=== PATIENT | male | born 1935 | race Caucasian/White ===

== ENCOUNTER 2023-06-11 08:42 | Emergency (ER) | payer OTHER ==
[~2023-06-11] VITALS: Ht 170.2 cm; Wt 77.2 kg
[~2023-06-11 08:42] MED LIST: AML5T PO; ASPI-543 PO; ATOR10TA PO; CLOP75TA28 PO; FOLI-119 PO; LEVO112T2 PO; METO25TA36 PO
[2023-06-11] MEDS ORDERED: SODIUM CHLORIDE 0.9% 500 ML IVB ONE (09:15)
[2023-06-11 09:18] VITALS: PULSE 84; RESP 18; O2SAT 93
[2023-06-11 09:20] LABS: Basophils # (auto) 0 10 ^3/uL (0-0.2); Eosinophils # (auto) 0 10 ^3/uL (0-0.8); Eosinophils % (auto) 0.4 % (0.0-7.0); Lymphocytes # (auto) 0.6 10 ^3/uL (0.4-5.4); Mean Corpuscular Hgb Conc. 33.8 g/dL (32.0-36.0); Monocytes # (auto) 0.6 10 ^3/uL (0-1.3); Neutrophils % (auto) 86.2 % (37.0-80.0); Red Blood Cells 3.99 10^6/uL (4.5-5.90)
[2023-06-11 09:22] LABS: Basophils % (auto) 0.1 % (0.0-2.0); Hematocrit 40.7 % (41.0-53.0); Hemoglobin 13.7 g/dL (13.5-17.5); Lymphocytes % (auto) 6.8 % (10.0-50.0); Mean Corpuscular Hemoglobin 34.4 pg (28.0-32.0); Mean Corpuscular Volume 101.8 fL (80.0-100.0); Monocytes % (auto) 6.5 % (0.0-12.0); Neutrophils # (auto) 7.9 10 ^3/uL (1.6-8.6); White Blood Cell 9.1 10^3/uL (4.4-10.8)
[2023-06-11 09:32] LABS: INR 1.16 (0.9-1.15); Partial Thromboplastin Time 30.2 SEC (24.5-34.5); Prothrombin Time 12.1 sec (9.3-11.8)
[2023-06-11 09:38] LABS: Calcium 8.7 mg/dL (8.5-10.1); Potassium 4.1 mmol/L (3.5-5.1)
[2023-06-11 09:43] LABS: Albumin 3.6 g/dL (3.4-5.0); Magnesium 2.7 mg/dL (1.6-2.6); Total Protein 7.4 g/dL (6.4-8.2)
[2023-06-11 12:41] LABS: COVID19 ANTIGEN SOFIA FIA NEGATIVE (NEGATIVE)
[2023-06-11 13:10] LABS: Urine Bacteria FEW /hpf (None Seen); Urine Blood 1+ /uL (Negative); Urine Clarity Clear (Clear); Urine Color Yellow (Yellow); Urine Mucus FEW (None Seen); Urine Protein, UAD 2+ (Negative); Urine Specific Gravity 1.023 (1.001-1.035); Urine Urobilinogen Normal (Negative); Urine WBC 2 /hpf (0 - 3); Urine pH 5.5 (5.0-8.0)
[2023-06-11 15:03] VITALS: BP 114/63; PULSE 80; RESP 20; O2SAT 97
[2023-06-11] MEDS ORDERED: ATORVASTATIN 20 MG TAB PO SCH (18:00)
[2023-06-12] MEDS ORDERED: LEVOTHYROXINE SODIUM 112 MCG TAB PO SCH (10:00)
[2023-06-12] MEDS ORDERED: ASPirin-EC 81 mg tab PO SCH (10:00)
[2023-06-12] MEDS ORDERED: CLOPIDOGREL BISULFATE 75 MG TAB PO SCH (10:00)
[2023-06-12] MEDS ORDERED: METOPROLOL SUCCINATE XL 50 MG TAB PO SCH (10:00)
[2023-06-12] MEDS ORDERED: amLODIPine BESYLATE 5 MG TAB PO SCH (10:00)
[2023-06-12] MEDS ORDERED: FOLIC ACID 1 MG TAB PO SCH (10:00)
[2023-06-12] MEDS ORDERED: ONDA-155 PO (18:39)
== END 2023-06-11 15:00 | disposition home or self-care (01) ==
LOC: ER 08:42
DX: R53.1 Weakness (principal); E78.5 Hyperlipidemia, unspecified; I10 Essential (primary) hypertension; R51.9 Headache, unspecified; Z20.822 Contact with and (suspected) exposure to COVID-19; Z88.6 Allergy status to analgesic agent; Z79.01 Long term (current) use of anticoagulants
CPT/HCPCS: 36415; 70450; 71045; 80053; 81001; 82962; 83605; 83735; 83880; 84484; 85025; 85610; 85730; 87040; 87426; 93005; 96360; 96361; 99284; J7040

== ENCOUNTER 2023-06-12 13:24 | Inpatient (IN) | payer OTHER ==
[~2023-06-12] VITALS: Ht 170.2 cm; Wt 86.0 kg
[2023-06-12] MEDS: SODIUM CHLORIDE 0.9% 1,000 ML IV SCH (14:15)
[2023-06-12] MEDS ORDERED: MORPHINE SULFATE INJ 2 MG/ml SYRG IV PRN (14:15)
[2023-06-12] MEDS ORDERED: NITROGLYCERIN 0.4 MG SL TAB SL PRN (14:15)
[2023-06-12 14:36] LABS: Basophils # (auto) 0 10 ^3/uL (0-0.2); Eosinophils # (auto) 0 10 ^3/uL (0-0.8); Eosinophils % (auto) 0.3 % (0.0-7.0); Mean Corpuscular Hemoglobin 34.3 pg (28.0-32.0); Neutrophils # (auto) 8.5 10 ^3/uL (1.6-8.6)
[2023-06-12 14:38] LABS: Basophils % (auto) 0.2 % (0.0-2.0); Hematocrit 40.7 % (41.0-53.0); Hemoglobin 13.5 g/dL (13.5-17.5); Lymphocytes # (auto) 0.9 10 ^3/uL (0.4-5.4); Lymphocytes % (auto) 8.8 % (10.0-50.0); Mean Corpuscular Hgb Conc. 33.3 g/dL (32.0-36.0); Monocytes # (auto) 0.6 10 ^3/uL (0-1.3); Monocytes % (auto) 6.4 % (0.0-12.0); Neutrophils % (auto) 84.3 % (37.0-80.0); Red Blood Cells 3.95 10^6/uL (4.5-5.90); Red Cell Distribution Width 14.8 % (11.8-14.3); White Blood Cell 10.1 10^3/uL (4.4-10.8)
[2023-06-12 15:09] LABS: Albumin 3.4 g/dL (3.4-5.0); Calcium 8.8 mg/dL (8.5-10.1); Potassium 4.4 mmol/L (3.5-5.1)
[2023-06-12 15:13] LABS: BUN/Creatinine Ratio 13.4 (10.0-20.0); Total Protein 7.6 g/dL (6.4-8.2)
[2023-06-12 15:42] LABS: Urine Bacteria NONE SEEN /hpf (None Seen); Urine Blood 3+ /uL (Negative); Urine Clarity Clear (Clear); Urine Color Yellow (Yellow); Urine Protein, UAD 2+ (Negative); Urine Specific Gravity 1.022 (1.001-1.035); Urine Urobilinogen Normal (Negative); Urine WBC 1 /hpf (0 - 3); Urine pH 5.5 (5.0-8.0)
[2023-06-12 18:13] VITALS: PULSE 67; RESP 16; O2SAT 92
[2023-06-12] MEDS ORDERED: ONDA-155 PO (18:39)
[2023-06-12 20:00] VITALS: BP 128/75; PULSE 94; RESP 18; TEMP 99.5; O2SAT 97
[2023-06-12 22:00] VITALS: BP 128/75; PULSE 94; RESP 18; TEMP 99.5; O2SAT 94
[2023-06-13] VITALS (7 sets, daily range): BP systolic 127–132; BP diastolic 67–79; PULSE 85–94; RESP 18–22; TEMP 97.7–99.5; O2SAT 89–97
[2023-06-13] MEDS: SODIUM CHLORIDE 0.9% 1,000 ML IV SCH ×2 (03:35→16:55)
[2023-06-13] MEDS: LEVOTHYROXINE SODIUM 112 MCG TAB PO SCH (06:26)
[2023-06-13 06:37] LABS: COVID19 ANTIGEN SOFIA FIA NEGATIVE (NEGATIVE)
[2023-06-13 07:33] LABS: Potassium 4.9 mmol/L (3.5-5.1)
[2023-06-13 07:43] LABS: Albumin 3.1 g/dL (3.4-5.0); BUN/Creatinine Ratio 15.6 (10.0-20.0); Bilirubin, Total 0.8 mg/dL (0.2-1.0); Calcium 8.1 mg/dL (8.5-10.1)
[2023-06-13] MEDS: METOPROLOL SUCCINATE XL 50 MG TAB PO SCH (09:25)
[2023-06-13] MEDS: ASPirin 81 mg TAB PO SCH (09:25)
[2023-06-13] MEDS: CLOPIDOGREL BISULFATE 75 MG TAB PO SCH (09:25)
[2023-06-13] MEDS: ENOXAPARIN SOD 30 MG/0.3 ML SYRINGE SC SCH (09:26)
[2023-06-14] VITALS (7 sets, daily range): BP systolic 117–135; BP diastolic 66–79; PULSE 78–83; RESP 17–20; TEMP 36.8; O2SAT 90–93
[2023-06-14] MEDS: ONDANSETRON HCL 4 MG/2 ML VIAL IV PRN ×2 (03:24→22:35)
[2023-06-14] MEDS: SODIUM CHLORIDE 0.9% 1,000 ML IV SCH (06:07)
[2023-06-14] MEDS: LEVOTHYROXINE SODIUM 112 MCG TAB PO SCH (06:07)
[2023-06-14] MEDS: ENOXAPARIN SOD 30 MG/0.3 ML SYRINGE SC SCH (10:33)
[2023-06-14] MEDS: CLOPIDOGREL BISULFATE 75 MG TAB PO SCH (10:33)
[2023-06-14] MEDS: ASPirin 81 mg TAB PO SCH (10:33)
[2023-06-14] MEDS: METOPROLOL SUCCINATE XL 50 MG TAB PO SCH (10:34)
[2023-06-14 20:17] LABS: COVID19 ANTIGEN SOFIA FIA NEGATIVE (NEGATIVE)
[2023-06-15] VITALS (13 sets, daily range): BP systolic 116–134; BP diastolic 72–80; PULSE 72–80; RESP 16–22; TEMP 36.8; O2SAT 90–98
[2023-06-15] MEDS: ACETAMINOPHEN 500 MG TAB PO PRN (02:02)
[2023-06-15] MEDS ORDERED: ALBUTEROL SULF 2.5 MG/0.5ML(0.5%) NEB SOLN ONE (02:25)
[2023-06-15] MEDS: LEVOTHYROXINE SODIUM 112 MCG TAB PO SCH (07:00)
[2023-06-15] MEDS: ASPirin 81 mg TAB PO SCH (10:03)
[2023-06-15] MEDS: SODIUM CHLORIDE 0.9% 1,000 ML IV SCH ×2 (10:03→13:47)
[2023-06-15] MEDS: CLOPIDOGREL BISULFATE 75 MG TAB PO SCH (10:03)
[2023-06-15] MEDS: ENOXAPARIN SOD 30 MG/0.3 ML SYRINGE SC SCH (10:04)
[2023-06-15] MEDS: METOPROLOL SUCCINATE XL 50 MG TAB PO SCH (10:04)
[2023-06-15] MEDS: ALBUTEROL SULF 2.5 MG/0.5ML(0.5%) NEB SOLN NEB PRN ×2 (10:17→22:33)
[2023-06-15] MEDS: ONDANSETRON HCL 4 MG/2 ML VIAL IV PRN ×2 (13:47→20:57)
[2023-06-16] VITALS (12 sets, daily range): BP systolic 136–153; BP diastolic 79–88; PULSE 73–92; RESP 16–25; TEMP 97.5–98.2; O2SAT 90–97
[2023-06-16] MEDS: ONDANSETRON HCL 4 MG/2 ML VIAL IV PRN (03:23)
[2023-06-16] MEDS: ALBUTEROL SULF 2.5 MG/0.5ML(0.5%) NEB SOLN NEB PRN ×2 (03:26→18:57)
[2023-06-16] MEDS: LEVOTHYROXINE SODIUM 112 MCG TAB PO SCH (06:45)
[2023-06-16] MEDS: ASPirin 81 mg TAB PO SCH (10:05)
[2023-06-16] MEDS: CLOPIDOGREL BISULFATE 75 MG TAB PO SCH (10:05)
[2023-06-16] MEDS: METOPROLOL SUCCINATE XL 50 MG TAB PO SCH (10:05)
[2023-06-16] MEDS: ENOXAPARIN SOD 30 MG/0.3 ML SYRINGE SC SCH (10:07)
[2023-06-16] MEDS: SODIUM CHLORIDE 0.9% 1,000 ML IV SCH (11:41)
[2023-06-16 12:54] LABS: Hematocrit 32.5 % (41.0-53.0); Hemoglobin 11.1 g/dL (13.5-17.5); Mean Corpuscular Hemoglobin 34.6 pg (28.0-32.0); Mean Corpuscular Volume 101.7 fL (80.0-100.0); Red Cell Distribution Width 15.3 % (11.8-14.3); White Blood Cell 9.8 10^3/uL (4.4-10.8)
[2023-06-16 12:58] LABS: Band Neutrophils % (manual) 0; Basophils % (manual) 0 (0.0-2.0); Blast Cells 0; Metamyelocytes % 0; Myelocytes % 0; Promyelocytes % 0; Reactive Lymphocytes 0
[2023-06-16 13:31] LABS: Albumin 2.4 g/dL (3.4-5.0); BUN/Creatinine Ratio 15.6 (10.0-20.0); Calcium 7.7 mg/dL (8.5-10.1); Potassium 4.3 mmol/L (3.5-5.1)
[2023-06-16 13:34] LABS: Bilirubin, Total 0.9 mg/dL (0.2-1.0); Total Protein 5.4 g/dL (6.4-8.2)
[2023-06-16 13:46] LABS: Free T4 (Free Thyroxine) 0.35 ng/dL (0.89-1.76)
[2023-06-16 13:47] LABS: Folate (Folic Acid) 18.92 ng/mL (5.38-24)
[2023-06-16 14:04] LABS: Eosinophils % (manual) 2 (0-7); Lymphocytes % (manual) 13 (10.0-50.0); Monocytes % (manual) 5 (0-12); Platelet Estimate Adequate
[2023-06-16] MEDS ORDERED: IOHEXOL 350 MG/ML 100ML IJ ONE (14:39)
[2023-06-16 14:48] LABS: Hepatitis B Surface Antibody Negative (Negative)
[2023-06-16 15:27] LABS: Hepatitis A Total Antibody Negative (Negative)
[2023-06-16 18:12] LABS: Hepatitis B Core Total AB Negative (Negative); Hepatitis B Surface Antigen Negative (Negative); Hepatitis C Antibody Negative (Negative)
[2023-06-16] MEDS: SENNA 8.6 MG TAB PO SCH (22:18)
[2023-06-16] MEDS: PANTOPRAZOLE 40 MG TAB PO SCH (22:18)
[2023-06-17] VITALS (19 sets, daily range): BP systolic 128–153; BP diastolic 76–83; PULSE 69–89; RESP 19–26; TEMP 98.6–99; O2SAT 88–95
[2023-06-17] MEDS: ALBUTEROL SULF 2.5 MG/0.5ML(0.5%) NEB SOLN NEB PRN (06:59)
[2023-06-17] MEDS: LEVOTHYROXINE SODIUM 112 MCG TAB PO SCH (07:20)
[2023-06-17] MEDS: CLOPIDOGREL BISULFATE 75 MG TAB PO SCH (09:44)
[2023-06-17] MEDS: METOPROLOL SUCCINATE XL 50 MG TAB PO SCH (09:45)
[2023-06-17] MEDS: PANTOPRAZOLE 40 MG TAB PO SCH ×2 (09:46→22:13)
[2023-06-17] MEDS: ASPirin 81 mg TAB PO SCH (09:46)
[2023-06-17] MEDS: ENOXAPARIN SOD 40 MG/0.4 ML SYRINGE SC SCH (09:46)
[2023-06-17] MEDS ORDERED: cefTRIAXone 1GM/50ML D5W 50 ML IV ONE (11:00)
[2023-06-17] MEDS ORDERED: FUROSEMIDE 20 MG/2 ML VIAL IV ONE (12:00)
[2023-06-17] MEDS ORDERED: LEVOTHYROXINE SODIUM 100 MCG/5 ML INJ IV ONE (12:15)
[2023-06-17] MEDS: IPRATROPIUM BROM 0.5 MG/2.5ML INH SOL NEB SCH ×3 (14:52→22:01)
[2023-06-17] MEDS: ALBUTEROL SULF 2.5 MG/0.5ML(0.5%) NEB SOLN NEB SCH ×3 (14:52→22:01)
[2023-06-17 15:55] LABS: Albumin 2.4 g/dL (3.4-5.0); Bilirubin, Direct 0.4 mg/dL (0-0.2)
[2023-06-17] MEDS: SENNA 8.6 MG TAB PO SCH (22:13)
[2023-06-17] MEDS: predniSONE 20 MG TAB PO SCH (22:13)
[2023-06-18] VITALS (17 sets, daily range): BP systolic 126–152; BP diastolic 76–88; PULSE 71–86; RESP 16–20; TEMP 97.6–98.7; O2SAT 89–99
[2023-06-18 05:39] LABS: Basophils # (auto) 0 10 ^3/uL (0-0.2); Basophils % (auto) 0.1 % (0.0-2.0); Eosinophils # (auto) 0 10 ^3/uL (0-0.8); Eosinophils % (auto) 0.1 % (0.0-7.0); Hemoglobin 11.2 g/dL (13.5-17.5); Monocytes # (auto) 0.3 10 ^3/uL (0-1.3); Monocytes % (auto) 3.2 % (0.0-12.0)
[2023-06-18 05:42] LABS: Hematocrit 32.9 % (41.0-53.0); Lymphocytes # (auto) 0.6 10 ^3/uL (0.4-5.4); Lymphocytes % (auto) 5.6 % (10.0-50.0); Mean Corpuscular Hemoglobin 34.9 pg (28.0-32.0); Mean Corpuscular Volume 102.7 fL (80.0-100.0); Red Blood Cells 3.21 10^6/uL (4.5-5.90); White Blood Cell 9.9 10^3/uL (4.4-10.8)
[2023-06-18 06:04] LABS: Albumin 2.2 g/dL (3.4-5.0); BUN/Creatinine Ratio 13.6 (10.0-20.0); Calcium 8.1 mg/dL (8.5-10.1); Potassium 4.1 mmol/L (3.5-5.1)
[2023-06-18 06:06] LABS: Bilirubin, Total 0.9 mg/dL (0.2-1.0); Total Protein 5.9 g/dL (6.4-8.2)
[2023-06-18] MEDS: IPRATROPIUM BROM 0.5 MG/2.5ML INH SOL NEB SCH ×5 (06:35→22:29)
[2023-06-18] MEDS: ALBUTEROL SULF 2.5 MG/0.5ML(0.5%) NEB SOLN NEB SCH ×5 (06:35→22:29)
[2023-06-18 08:16] LABS: Bilirubin, Direct 0.4 mg/dL (0-0.2)
[2023-06-18] MEDS ORDERED: LEVOTHYROXINE SODIUM 100 MCG/5 ML INJ IV SCH (10:00)
[2023-06-18 10:57] LABS: Base Excess -0.2 mmol/L (-2.0-2.0)
[2023-06-18] MEDS: cefTRIAXone 1GM/50ML D5W 50 ML IV SCH (11:13)
[2023-06-18] MEDS: ASPirin 81 mg TAB PO SCH (11:14)
[2023-06-18] MEDS: METOPROLOL SUCCINATE XL 50 MG TAB PO SCH (11:14)
[2023-06-18] MEDS: PANTOPRAZOLE 40 MG TAB PO SCH ×2 (11:15→20:36)
[2023-06-18] MEDS: CLOPIDOGREL BISULFATE 75 MG TAB PO SCH (11:15)
[2023-06-18] MEDS: predniSONE 20 MG TAB PO SCH ×2 (11:15→20:35)
[2023-06-18] MEDS: ENOXAPARIN SOD 40 MG/0.4 ML SYRINGE SC SCH (11:15)
[2023-06-18] MEDS: BUDESONIDE (INHALATION) 0.5 MG/2 ML NEB NEB SCH (19:23)
[2023-06-18] MEDS: ACETAMINOPHEN 500 MG TAB PO PRN (20:35)
[2023-06-18] MEDS: SENNA 8.6 MG TAB PO SCH (20:36)
[2023-06-19] VITALS (14 sets, daily range): BP systolic 137–147; BP diastolic 77–92; PULSE 71–87; RESP 15–19; TEMP 97.6–98.5; O2SAT 15–99
[2023-06-19] MEDS: BUDESONIDE (INHALATION) 0.5 MG/2 ML NEB NEB SCH ×2 (07:04→19:37)
[2023-06-19] MEDS: IPRATROPIUM BROM 0.5 MG/2.5ML INH SOL NEB SCH ×4 (07:05→19:37)
[2023-06-19] MEDS: ALBUTEROL SULF 2.5 MG/0.5ML(0.5%) NEB SOLN NEB SCH ×4 (07:05→19:37)
[2023-06-19] MEDS ORDERED: LEVOTHYROXINE SODIUM 50 MCG TAB PO SCH (09:30)
[2023-06-19] MEDS: ENOXAPARIN SOD 40 MG/0.4 ML SYRINGE SC SCH (11:24)
[2023-06-19] MEDS: cefTRIAXone 1GM/50ML D5W 50 ML IV SCH (11:24)
[2023-06-19] MEDS: PANTOPRAZOLE 40 MG TAB PO SCH (11:24)
[2023-06-19] MEDS: CLOPIDOGREL BISULFATE 75 MG TAB PO SCH (11:25)
[2023-06-19] MEDS: ASPirin 81 mg TAB PO SCH (11:25)
[2023-06-19] MEDS: predniSONE 20 MG TAB PO SCH (11:25)
[2023-06-19] MEDS: METOPROLOL SUCCINATE XL 50 MG TAB PO SCH (11:26)
== END 2023-06-19 21:15 | DRG 682 ==
LOC: ER 13:24 → OVERFLOW 14:10 → EAST 17:50
PROVIDERS: ADMIT Hospitalist; ATTEND Hospitalist
DX: N17.9 Acute kidney failure, unspecified (principal); J18.9 Pneumonia, unspecified organism; J96.01 Acute respiratory failure with hypoxia; E86.0 Dehydration; N18.9 Chronic kidney disease, unspecified; I12.9 Hypertensive chronic kidney disease with stage 1 through stage 4 chronic kidney disease, or unspecified chronic kidney disease; K57.30 Diverticulosis of large intestine without perforation or abscess without bleeding; I25.10 Atherosclerotic heart disease of native coronary artery without angina pectoris; Z79.02 Long term (current) use of antithrombotics/antiplatelets; Z79.82 Long term (current) use of aspirin; Z82.49 Family history of ischemic heart disease and other diseases of the circulatory system; Z95.5 Presence of coronary angioplasty implant and graft; Z88.5 Allergy status to narcotic agent; Z91.012 Allergy to eggs; Z20.822 Contact with and (suspected) exposure to COVID-19
CPT/HCPCS: 36415; 36600; 70551; 71045; 71275; 74178; 80048; 80053; 80076; 81001; 82550; 82607; 82746; 82805; 84439; 84443; 84484; 85007; 85025; 85027; 85379; 86704; 86706; 86708; 86803; 87340; 87426; 93005; 93306; 93970; 94640; 96360; 97110; 97116; 97163; 97530; G0378; J0696; J2405; J3490

== ENCOUNTER 2023-06-20 16:57 | Inpatient (IN) | payer OTHER ==
[~2023-06-20] VITALS: Ht 182.9 cm; Wt 82.9 kg
[~2023-06-20 16:57] MED LIST changes: +ONDA-155 PO
[2023-06-20] MEDS ORDERED: DexAMETHasone SOD PHOS 10MG/1ML VIAL INJ IV ONE (18:00)
[2023-06-20] MEDS ORDERED: SODIUM CHLORIDE 0.9% 1,000 ML IV ONE (18:00)
[2023-06-20] MEDS ORDERED: IPRATROPIUM BROM 0.5 MG/2.5ML INH SOL HHN ONE (18:15)
[2023-06-20] MEDS ORDERED: ALBUTEROL SULF 2.5 MG/0.5ML(0.5%) NEB SOLN HHN ONE (18:15)
[2023-06-20 18:22] LABS: Lymphocytes # (auto) 0.7 10 ^3/uL (0.4-5.4); Red Cell Distribution Width 15.2 % (11.8-14.3)
[2023-06-20 18:24] LABS: Basophils # (auto) 0.1 10 ^3/uL (0-0.2); Basophils % (auto) 0.4 % (0.0-2.0); Eosinophils # (auto) 0.2 10 ^3/uL (0-0.8); Eosinophils % (auto) 1.8 % (0.0-7.0); Hematocrit 36.8 % (41.0-53.0); Hemoglobin 12.1 g/dL (13.5-17.5); Lymphocytes % (auto) 5.6 % (10.0-50.0); Mean Corpuscular Hemoglobin 33.5 pg (28.0-32.0); Mean Corpuscular Hgb Conc. 32.8 g/dL (32.0-36.0); Monocytes # (auto) 0.6 10 ^3/uL (0-1.3); Monocytes % (auto) 4.8 % (0.0-12.0); Neutrophils # (auto) 11.4 10 ^3/uL (1.6-8.6); Neutrophils % (auto) 87.4 % (37.0-80.0); Red Blood Cells 3.61 10^6/uL (4.5-5.90); White Blood Cell 13.1 10^3/uL (4.4-10.8)
[2023-06-20 18:35] VITALS: PULSE 103; RESP 28; O2SAT 91
[2023-06-20 18:48] LABS: INR 1.11 (0.9-1.15); Prothrombin Time 11.6 sec (9.3-11.8)
[2023-06-20 18:50] LABS: Albumin 2.7 g/dL (3.4-5.0); Calcium 8.3 mg/dL (8.5-10.1); Magnesium 2.5 mg/dL (1.6-2.6); Potassium 4.3 mmol/L (3.5-5.1)
[2023-06-20 18:54] LABS: BUN/Creatinine Ratio 16.4 (10.0-20.0); Bilirubin, Total 0.9 mg/dL (0.2-1.0); Total Protein 6.6 g/dL (6.4-8.2)
[2023-06-20 19:30] VITALS: PULSE 117; RESP 20; O2SAT 94
[2023-06-20] MEDS ORDERED: MORPHINE SULFATE INJ 2 MG/ml SYRG IV PRN (20:15)
[2023-06-20] MEDS ORDERED: ONDANSETRON HCL 4 MG/2 ML VIAL IV PRN (20:15)
[2023-06-20] MEDS ORDERED: hydrALAZINE HCL 10 MG TAB PO PRN (20:15)
[2023-06-20] MEDS ORDERED: cefTRIAXone 1GM/50ML D5W 50 ML IV ONE (20:15)
[2023-06-20] MEDS ORDERED: levoFLOXacin 500MG 100 ML IV ONE (20:15)
[2023-06-20] MEDS ORDERED: HYDROcodone-ACET 5/325MG TAB PO PRN (20:15)
[2023-06-20] MEDS ORDERED: ACETAMINOPHEN 325 MG TAB PO PRN (20:15)
[2023-06-20 20:25] LABS: Base Excess 2.3 mmol/L (-2.0-2.0)
[2023-06-20] MEDS: SODIUM CHLORIDE 0.9% 1,000 ML IV SCH (20:45)
[2023-06-20 21:20] LABS: COVID19 ANTIGEN SOFIA FIA NEGATIVE (NEGATIVE)
[2023-06-20] MEDS: methylPREDNISolone SOD SUCC 40 MG/ML VL IV SCH (22:29)
[2023-06-20 22:39] VITALS: PULSE 112; RESP 20; O2SAT 96
[2023-06-20 22:47] VITALS: PULSE 93; RESP 20; O2SAT 97
[2023-06-20] MEDS: IPRATROPIUM BROM 0.5 MG/2.5ML INH SOL NEB SCH (23:25)
[2023-06-20] MEDS: ALBUTEROL SULF 2.5 MG/0.5ML(0.5%) NEB SOLN NEB SCH (23:25)
[2023-06-21] VITALS (36 sets, daily range): BP systolic 127–152; BP diastolic 72–81; PULSE 81–143; RESP 14–25; TEMP 97.7; O2SAT 87–99
[2023-06-21] MEDS ORDERED: IPRATROPIUM BROM 0.5 MG/2.5ML INH SOL NEB SCH
[2023-06-21 00:34] LABS: Urine Bacteria FEW /hpf (None Seen); Urine Blood Negative /uL (Negative); Urine Clarity Clear (Clear); Urine Color Yellow (Yellow); Urine Hyaline Cast FEW /lpf (0 - 2); Urine Protein, UAD 1+ (Negative); Urine Specific Gravity 1.019 (1.001-1.035); Urine Urobilinogen Normal (Negative); Urine WBC 6 /hpf (0 - 3); Urine pH 6.5 (5.0-8.0)
[2023-06-21] MEDS: IPRATROPIUM BROM 0.5 MG/2.5ML INH SOL NEB SCH ×6 (02:16→22:26)
[2023-06-21] MEDS: ALBUTEROL SULF 2.5 MG/0.5ML(0.5%) NEB SOLN NEB SCH ×6 (02:16→22:26)
[2023-06-21 06:06] LABS: Basophils # (auto) 0 10 ^3/uL (0-0.2); Eosinophils # (auto) 0 10 ^3/uL (0-0.8)
[2023-06-21 06:08] LABS: Basophils % (auto) 0.1 % (0.0-2.0); Hemoglobin 10.9 g/dL (13.5-17.5); Lymphocytes # (auto) 0.4 10 ^3/uL (0.4-5.4); Lymphocytes % (auto) 4.9 % (10.0-50.0); Mean Corpuscular Hemoglobin 34.4 pg (28.0-32.0); Mean Corpuscular Hgb Conc. 34.2 g/dL (32.0-36.0); Mean Corpuscular Volume 100.5 fL (80.0-100.0); Monocytes # (auto) 0.2 10 ^3/uL (0-1.3); Monocytes % (auto) 2.5 % (0.0-12.0); Neutrophils % (auto) 92.5 % (37.0-80.0); Red Blood Cells 3.18 10^6/uL (4.5-5.90); Red Cell Distribution Width 15.1 % (11.8-14.3); White Blood Cell 8.7 10^3/uL (4.4-10.8)
[2023-06-21 06:16] LABS: BUN/Creatinine Ratio 16.1 (10.0-20.0); Calcium 8.1 mg/dL (8.5-10.1); Potassium 4.3 mmol/L (3.5-5.1)
[2023-06-21] MEDS: SODIUM CHLORIDE 0.9% 1,000 ML IV SCH ×3 (06:45→14:27)
[2023-06-21] MEDS: methylPREDNISolone SOD SUCC 40 MG/ML VL IV SCH ×2 (09:47→23:07)
[2023-06-21] MEDS: ENOXAPARIN SOD 40 MG/0.4 ML SYRINGE SC SCH (09:48)
[2023-06-21] MEDS ORDERED: levoFLOXacin 500MG 100 ML IV SCH (10:00)
[2023-06-21] MEDS ORDERED: levoFLOXacin 250MG 50 ML IV SCH (10:00)
[2023-06-21] MEDS ORDERED: FUROSEMIDE 20 MG/2 ML VIAL IV ONE (14:00)
[2023-06-21] MEDS: PIPERACILLIN-TAZOB 3.375GM 100 ML IV SCH ×2 (14:59→23:06)
[2023-06-22] VITALS (24 sets, daily range): BP systolic 139–156; BP diastolic 74–89; PULSE 76–95; RESP 14–21; TEMP 97.5–98.2; O2SAT 92–98
[2023-06-22] MEDS: IPRATROPIUM BROM 0.5 MG/2.5ML INH SOL NEB SCH ×6 (02:28→22:02)
[2023-06-22] MEDS: ALBUTEROL SULF 2.5 MG/0.5ML(0.5%) NEB SOLN NEB SCH ×6 (02:28→22:02)
[2023-06-22] MEDS: SODIUM CHLORIDE 0.9% 1,000 ML IV SCH ×2 (04:18→18:37)
[2023-06-22 05:01] LABS: Basophils # (auto) 0 10 ^3/uL (0-0.2); Eosinophils # (auto) 0 10 ^3/uL (0-0.8); Lymphocytes # (auto) 0.7 10 ^3/uL (0.4-5.4); Monocytes # (auto) 0.5 10 ^3/uL (0-1.3); Neutrophils # (auto) 12.1 10 ^3/uL (1.6-8.6); Red Cell Distribution Width 15.2 % (11.8-14.3); White Blood Cell 13.3 10^3/uL (4.4-10.8)
[2023-06-22 05:02] LABS: Basophils % (auto) 0.1 % (0.0-2.0); Hematocrit 32.2 % (41.0-53.0); Hemoglobin 10.7 g/dL (13.5-17.5); Mean Corpuscular Hemoglobin 33.8 pg (28.0-32.0); Mean Corpuscular Hgb Conc. 33.3 g/dL (32.0-36.0); Mean Corpuscular Volume 101.4 fL (80.0-100.0); Monocytes % (auto) 3.8 % (0.0-12.0); Neutrophils % (auto) 91.1 % (37.0-80.0); Red Blood Cells 3.17 10^6/uL (4.5-5.90)
[2023-06-22 05:45] LABS: Albumin 2.5 g/dL (3.4-5.0); Calcium 8.1 mg/dL (8.5-10.1); Potassium 4.3 mmol/L (3.5-5.1)
[2023-06-22 05:49] LABS: BUN/Creatinine Ratio 18.5 (10.0-20.0); Bilirubin, Total 0.6 mg/dL (0.2-1.0); Total Protein 6.2 g/dL (6.4-8.2)
[2023-06-22] MEDS: PIPERACILLIN-TAZOB 3.375GM 100 ML IV SCH ×3 (06:03→22:00)
[2023-06-22] MEDS ORDERED: cefTRIAXone 1GM/50ML D5W 50 ML IV SCH (09:00)
[2023-06-22] MEDS: methylPREDNISolone SOD SUCC 40 MG/ML VL IV SCH ×2 (10:21→22:00)
[2023-06-22] MEDS: ENOXAPARIN SOD 40 MG/0.4 ML SYRINGE SC SCH (10:21)
[2023-06-22] MEDS: FAMOTIDINE 20 MG TAB PO SCH (18:38)
[2023-06-23] VITALS (22 sets, daily range): BP systolic 131–154; BP diastolic 67–90; PULSE 72–107; RESP 10–19; TEMP 97.5–97.8; O2SAT 91–100
[2023-06-23] MEDS: IPRATROPIUM BROM 0.5 MG/2.5ML INH SOL NEB SCH ×6 (02:00→23:21)
[2023-06-23] MEDS: ALBUTEROL SULF 2.5 MG/0.5ML(0.5%) NEB SOLN NEB SCH ×6 (02:00→23:21)
[2023-06-23] MEDS: PIPERACILLIN-TAZOB 3.375GM 100 ML IV SCH ×3 (06:22→21:28)
[2023-06-23] MEDS: LEVOTHYROXINE SODIUM 112 MCG TAB PO SCH (06:22)
[2023-06-23] MEDS: LEVOTHYROXINE SODIUM 25 MCG TAB PO SCH (06:23)
[2023-06-23] MEDS ORDERED: ASPirin 81 mg TAB PO ONE (10:15)
[2023-06-23] MEDS: methylPREDNISolone SOD SUCC 40 MG/ML VL IV SCH ×2 (10:31→21:28)
[2023-06-23] MEDS: FAMOTIDINE 20 MG TAB PO SCH (10:31)
[2023-06-23] MEDS: ENOXAPARIN SOD 40 MG/0.4 ML SYRINGE SC SCH (10:31)
[2023-06-23] MEDS: SODIUM CHLORIDE 0.9% 1,000 ML IV SCH (10:32)
[2023-06-23 14:18] LABS: Basophils # (auto) 0 10 ^3/uL (0-0.2); Basophils % (auto) 0.2 % (0.0-2.0); Eosinophils # (auto) 0 10 ^3/uL (0-0.8); Hematocrit 32.9 % (41.0-53.0); Hemoglobin 10.9 g/dL (13.5-17.5); Lymphocytes # (auto) 0.5 10 ^3/uL (0.4-5.4); Lymphocytes % (auto) 3.6 % (10.0-50.0); Mean Corpuscular Hemoglobin 33.7 pg (28.0-32.0); Mean Corpuscular Hgb Conc. 33.2 g/dL (32.0-36.0); Mean Corpuscular Volume 101.6 fL (80.0-100.0); Monocytes # (auto) 0.3 10 ^3/uL (0-1.3); Monocytes % (auto) 2.2 % (0.0-12.0); Neutrophils # (auto) 12.8 10 ^3/uL (1.6-8.6); Nucleated Red Blood Cells % 0.1 %; Red Blood Cells 3.24 10^6/uL (4.5-5.90); Red Cell Distribution Width 15.2 % (11.8-14.3); White Blood Cell 13.6 10^3/uL (4.4-10.8)
[2023-06-23 14:39] LABS: Albumin 2.5 g/dL (3.4-5.0); Calcium 7.8 mg/dL (8.5-10.1); Potassium 4.9 mmol/L (3.5-5.1)
[2023-06-23 14:50] LABS: Bilirubin, Total 0.6 mg/dL (0.2-1.0)
[2023-06-23 15:42] LABS: BUN/Creatinine Ratio 18.8 (10.0-20.0); Total Protein 5.4 g/dL (6.4-8.2)
[2023-06-23] MEDS: MELATONIN 5 MG TAB PO SCH (21:29)
[2023-06-24] VITALS (21 sets, daily range): BP systolic 135–162; BP diastolic 71–94; PULSE 69–95; RESP 10–23; TEMP 97.6–98.4; O2SAT 91–99
[2023-06-24] MEDS: ALBUTEROL SULF 2.5 MG/0.5ML(0.5%) NEB SOLN NEB SCH ×4 (01:48→18:16)
[2023-06-24] MEDS: IPRATROPIUM BROM 0.5 MG/2.5ML INH SOL NEB SCH ×4 (01:48→18:17)
[2023-06-24] MEDS: LEVOTHYROXINE SODIUM 25 MCG TAB PO SCH (06:12)
[2023-06-24] MEDS: LEVOTHYROXINE SODIUM 112 MCG TAB PO SCH (06:12)
[2023-06-24] MEDS: PIPERACILLIN-TAZOB 3.375GM 100 ML IV SCH ×2 (06:13→22:04)
[2023-06-24] MEDS: FAMOTIDINE 20 MG TAB PO SCH (07:58)
[2023-06-24] MEDS: ASPirin 81 mg TAB PO SCH (07:59)
[2023-06-24] MEDS: methylPREDNISolone SOD SUCC 40 MG/ML VL IV SCH ×2 (07:59→22:04)
[2023-06-24] MEDS: ENOXAPARIN SOD 40 MG/0.4 ML SYRINGE SC SCH (07:59)
[2023-06-24] MEDS ORDERED: METOPROLOL SUCCINATE XL 50 MG TAB PO ONE (13:00)
[2023-06-24 13:12] LABS: Basophils # (auto) 0 10 ^3/uL (0-0.2); Basophils % (auto) 0.2 % (0.0-2.0); Eosinophils # (auto) 0 10 ^3/uL (0-0.8); Hemoglobin 11.8 g/dL (13.5-17.5); Lymphocytes # (auto) 0.6 10 ^3/uL (0.4-5.4); Mean Corpuscular Hemoglobin 33.5 pg (28.0-32.0); Nucleated Red Blood Cells % 0.1 %; Red Blood Cells 3.52 10^6/uL (4.5-5.90)
[2023-06-24 13:14] LABS: Hematocrit 35.5 % (41.0-53.0); Lymphocytes % (auto) 4.9 % (10.0-50.0); Mean Corpuscular Hgb Conc. 33.1 g/dL (32.0-36.0); Monocytes # (auto) 0.4 10 ^3/uL (0-1.3); Monocytes % (auto) 3.4 % (0.0-12.0); Neutrophils # (auto) 11.6 10 ^3/uL (1.6-8.6); Neutrophils % (auto) 91.5 % (37.0-80.0); Red Cell Distribution Width 15.3 % (11.8-14.3); White Blood Cell 12.6 10^3/uL (4.4-10.8)
[2023-06-24] MEDS: MELATONIN 5 MG TAB PO SCH (22:05)
[2023-06-25] VITALS (13 sets, daily range): BP systolic 136–145; BP diastolic 68–88; PULSE 69–88; RESP 16–19; TEMP 97.5–98.2; O2SAT 93–98
[2023-06-25] MEDS: PIPERACILLIN-TAZOB 3.375GM 100 ML IV SCH ×3 (05:52→21:31)
[2023-06-25] MEDS: LEVOTHYROXINE SODIUM 25 MCG TAB PO SCH (06:39)
[2023-06-25] MEDS: LEVOTHYROXINE SODIUM 112 MCG TAB PO SCH (06:39)
[2023-06-25] MEDS: ALBUTEROL SULF 2.5 MG/0.5ML(0.5%) NEB SOLN NEB SCH ×5 (06:47→23:55)
[2023-06-25] MEDS: IPRATROPIUM BROM 0.5 MG/2.5ML INH SOL NEB SCH ×5 (06:47→23:55)
[2023-06-25] MEDS: ASPirin 81 mg TAB PO SCH (10:44)
[2023-06-25] MEDS: CLOPIDOGREL BISULFATE 75 MG TAB PO SCH (10:45)
[2023-06-25] MEDS: ENOXAPARIN SOD 40 MG/0.4 ML SYRINGE SC SCH (10:45)
[2023-06-25] MEDS: FAMOTIDINE 20 MG TAB PO SCH (10:45)
[2023-06-25] MEDS: METOPROLOL SUCCINATE XL 50 MG TAB PO SCH (10:45)
[2023-06-25] MEDS: methylPREDNISolone SOD SUCC 40 MG/ML VL IV SCH (10:45)
[2023-06-25 13:10] LABS: Anion Gap 9.2 (5-15); Carbon Dioxide 24.8 mmol/L (20-30); Chloride 100 mmol/L (98-107); Sodium 134 mmol/L (136-145)
[2023-06-25 13:11] LABS: Calcium 8.5 mg/dL (8.5-10.1)
[2023-06-25 13:16] LABS: Blood Urea Nitrogen 35 mg/dL (9-23); Glucose 126 mg/dL (74-106)
[2023-06-25 14:19] LABS: Potassium 5.8 mmol/L (3.5-5.1)
[2023-06-25] MEDS ORDERED: SODIUM ZIRCONIUM CYCL 10 GM PAK PO ONE (14:30)
[2023-06-25] MEDS: THROAT LOZENGES(CEPASTAT) MT SCH ×2 (18:33→21:34)
[2023-06-25] MEDS: MELATONIN 5 MG TAB PO SCH (21:34)
[2023-06-26] VITALS (11 sets, daily range): BP systolic 122–151; BP diastolic 68–87; PULSE 71–85; RESP 16–18; TEMP 98–98.5; O2SAT 94–100
[2023-06-26 05:51] LABS: Chloride 100 mmol/L (98-107); Potassium 4.1 mmol/L (3.5-5.1); Sodium 135 mmol/L (136-145)
[2023-06-26 05:53] LABS: Calcium 8.3 mg/dL (8.5-10.1)
[2023-06-26 05:57] LABS: BUN/Creatinine Ratio 19.7 (10.0-20.0); Blood Urea Nitrogen 31 mg/dL (9-23); Glucose 116 mg/dL (74-106)
[2023-06-26] MEDS: LEVOTHYROXINE SODIUM 112 MCG TAB PO SCH (06:00)
[2023-06-26] MEDS: PIPERACILLIN-TAZOB 3.375GM 100 ML IV SCH ×2 (06:00→13:33)
[2023-06-26] MEDS: LEVOTHYROXINE SODIUM 25 MCG TAB PO SCH (06:00)
[2023-06-26 06:01] LABS: Basophils # (auto) 0 10 ^3/uL (0-0.2); Eosinophils # (auto) 0.1 10 ^3/uL (0-0.8); Eosinophils % (auto) 0.5 % (0.0-7.0); Hematocrit 37.5 % (41.0-53.0); Hemoglobin 12.4 g/dL (13.5-17.5); Lymphocytes # (auto) 1.5 10 ^3/uL (0.4-5.4); Neutrophils # (auto) 9.2 10 ^3/uL (1.6-8.6); Nucleated Red Blood Cells % 0.1 %; Red Cell Distribution Width 15.1 % (11.8-14.3); White Blood Cell 11.4 10^3/uL (4.4-10.8)
[2023-06-26] MEDS: THROAT LOZENGES(CEPASTAT) MT SCH ×3 (06:07→17:51)
[2023-06-26 06:15] LABS: Basophils % (auto) 0.1 % (0.0-2.0); Lymphocytes % (auto) 13.3 % (10.0-50.0); Mean Corpuscular Hemoglobin 34.3 pg (28.0-32.0); Mean Corpuscular Hgb Conc. 33.2 g/dL (32.0-36.0); Mean Corpuscular Volume 103.2 fL (80.0-100.0); Monocytes # (auto) 0.6 10 ^3/uL (0-1.3); Monocytes % (auto) 5.2 % (0.0-12.0); Neutrophils % (auto) 80.9 % (37.0-80.0); Red Blood Cells 3.63 10^6/uL (4.5-5.90)
[2023-06-26] MEDS: IPRATROPIUM BROM 0.5 MG/2.5ML INH SOL NEB SCH ×3 (06:37→19:13)
[2023-06-26] MEDS: ALBUTEROL SULF 2.5 MG/0.5ML(0.5%) NEB SOLN NEB SCH ×3 (06:37→19:12)
[2023-06-26] MEDS: ENOXAPARIN SOD 40 MG/0.4 ML SYRINGE SC SCH (09:43)
[2023-06-26] MEDS: FAMOTIDINE 20 MG TAB PO SCH (09:44)
[2023-06-26] MEDS: ASPirin 81 mg TAB PO SCH (09:44)
[2023-06-26] MEDS: METOPROLOL SUCCINATE XL 50 MG TAB PO SCH (09:44)
[2023-06-26] MEDS: CLOPIDOGREL BISULFATE 75 MG TAB PO SCH (09:44)
[2023-06-26] MEDS ORDERED: SODIUM ZIRCONIUM CYCL 10 GM PAK PO ONE (10:00)
[2023-06-26 16:51] LABS: COVID19 ANTIGEN SOFIA FIA NEGATIVE (NEGATIVE)
== END 2023-06-26 20:09 | DRG 193 ==
LOC: ER 16:57 → EDBD 16:57 → TELE 20:30 → DOU IN ICU 06-21 17:30 → TELE-EAST 06-24 19:25
PROVIDERS: ADMIT Nurse Practitioner Family; ATTEND Hospitalist
DX: J18.9 Pneumonia, unspecified organism (principal); J96.01 Acute respiratory failure with hypoxia; R65.11 Systemic inflammatory response syndrome (SIRS) of non-infectious origin with acute organ dysfunction; N17.9 Acute kidney failure, unspecified; I13.0 Hypertensive heart and chronic kidney disease with heart failure and stage 1 through stage 4 chronic kidney disease, or unspecified chronic kidney disease; N39.0 Urinary tract infection, site not specified; J44.0 Chronic obstructive pulmonary disease with (acute) lower respiratory infection; J98.11 Atelectasis; E03.9 Hypothyroidism, unspecified; E86.0 Dehydration; I25.10 Atherosclerotic heart disease of native coronary artery without angina pectoris; N18.2 Chronic kidney disease, stage 2 (mild); Z20.822 Contact with and (suspected) exposure to COVID-19; I50.9 Heart failure, unspecified; Z79.899 Other long term (current) drug therapy; Z82.49 Family history of ischemic heart disease and other diseases of the circulatory system; Z95.5 Presence of coronary angioplasty implant and graft; Z88.8 Allergy status to other drugs, medicaments and biological substances; Z91.012 Allergy to eggs
CPT/HCPCS: 36415; 36600; 70450; 71045; 71250; 80048; 80053; 81001; 82805; 83605; 83735; 83880; 84439; 84443; 84484; 85025; 85379; 85610; 85730; 87040; 87077; 87081; 87086; 87186; 87426; 93005; 94640; 96361; 96365; 96375; 97110; 97116; 97163; 97530; G0378; J0696; J1100; J1956; J2405; J2543

== ENCOUNTER 2023-09-30 15:32 | Emergency (ER) | payer OTHER ==
[~2023-09-30] VITALS: Ht 170.2 cm; Wt 75.1 kg
[2023-09-30 16:06] VITALS: BP 132/81; PULSE 125; RESP 18; O2SAT 93
== END 2023-09-30 21:25 | disposition left against medical advice (07) ==
LOC: ER 15:32
DX: R21 Rash and other nonspecific skin eruption (principal); R94.31 Abnormal electrocardiogram [ECG] [EKG]; Z53.21 Procedure and treatment not carried out due to patient leaving prior to being seen by health care provider
CPT/HCPCS: 93005